=== PATIENT | male | born 1955 | race Caucasian/White ===

== ENCOUNTER 2017-03-09 09:20 | Day surgery (SDC) | payer OTHER ==
--- NOTE | 2017-03-06 15:19 | HISTORY AND PHYSICAL E ---
History and Physical NAME: RADHA OLSON : 1955 AGE: 62Y ADMITTED: 03/09/2017 ROOM: CHIEF COMPLAINT: Patient for colonoscopy. REFERRING PHYSICIAN: MAX MCCLELLAND MD. HISTORY: The patient does have a history of adenoma polyp, right colon. On colonoscopy in 2005, the patient did have adenoma polyps, lipoma, and hemorrhoid. Colonoscopy in 2007. Colonoscopy in 2011 shows as follows: He did a small polyp, ascending colon, and these polyps were adenoma polyp, ascending and transverse colon. Another colonoscopy showing adenoma polyps, ascending and transverse colon. PAST SURGICAL HISTORY: 1. Appendectomy as a child. 2. Knee surgery. 3. Back surgery. MEDICATION: 1. Zocor. 2. Crestor. 3. Metoprolol. ALLERGIES: No known allergies. SOCIAL HISTORY: Does smoke cigars. The patient is . FAMILY HISTORY: Father had emphysema. Mom is alive. REVIEW OF SYSTEMS: CARDIAC: Negative. RESPIRATORY: Negative. NEUROLOGIC: Negative. GASTROINTESTINAL: History of colon polyps. PHYSICAL EXAMINATION: VITAL SIGNS: Blood pressure 120/80, pulse 80, respirations 20, temp is 98. HEAD, EYES, EARS, NOSE, THROAT: Normal. NECK: Supple. LUNGS: Clear. ABDOMEN: Soft. NEUROLOGIC: Exam negative. CONCLUSION: 1. History of polyps. 2. Colon screening. PLAN: Colon exam, scheduled for 03/09. DICTATING PHYSICIAN: ANKUSH CAMARA M.D. [id number] PHY#: [id number] ID: [id number] JOB#: [id number] ACCT: [id number] cc:ANKUSH CAMARA M.D. >
[2017-03-09] MEDS ORDERED: GLYCOPYRROLATE INJ 0.4 MG/2 ML VIAL ONE (09:51)
[2017-03-09] MEDS ORDERED: NALOXONE HCL INJ/PF 0.4 MG/1 ML SDV ONE (09:51)
[2017-03-09] MEDS ORDERED: MIDAZOLAM 2 MG/2 ML INJ ONE (09:51)
[2017-03-09] MEDS ORDERED: ONDANSETRON HCL INJ/PF 4 MG/2 ML SDV ONE (09:51)
[2017-03-09] MEDS ORDERED: GLUCAGON,HUMAN RECOMB 1 MG INJ ONE (09:52)
[2017-03-09] MEDS ORDERED: EPINEPHRINE INJ 1 MG/10 ML DISP.SYRIN ONE (09:52)
[2017-03-09] MEDS ORDERED: FLUMAZENIL INJ 0.5 MG/5 ML VIAL ONE (09:52)
[2017-03-09] MEDS: MIDAZOLAM 2 MG/2 ML INJ ONE ×2 (10:11→10:15)
[2017-03-09] MEDS: FENTANYL CITRATE INJ/PF 100 MCG/2 ML AMPUL ONE ×2 (10:13→10:17)
[2017-03-09 11:22] VITALS: BP 104/70
[2017-03-09 11:25] LABS: ABSOLUTE EOSINOPHILS # (AUTO) 0.1 10^3/uL (0.0-0.6); ABSOLUTE LYMPHOCYTES (AUTO) 1.8 10^3/uL (0.5-4.7); ABSOLUTE MONOCYTES (AUTO) 0.3 10^3/uL (0.1-1.4); ABSOLUTE NEUT (AUTO) 4.3 10^3/uL (1.7-8.2); BASOPHILS % (AUTO) 0.4 % (0-2); EOSINOPHILS % (AUTO) 1.4 % (0-6); HEMATOCRIT 45.3 % (37.9-51.0); HGB HCT DIFFERENCE 2.7; MEAN CORPUSCULAR HGB CONC 35.3 g/dL (32.0-36.0); MEAN CORPUSCULAR VOLUME 91 fl (80-97); MONOCYTES % (AUTO) 4.6 % (3-13); RED BLOOD COUNT 5.01 10^6/uL (4.35-5.55); SEGMENTED NEUTROPHILS % (AUTO) 65.6 % (42-78); WHITE BLOOD COUNT 6.5 10^3/uL (4.0-10.5)
--- NOTE | 2017-03-09 11:52 | OPERATIVE REPORT E ---
Operative Report NAME: RADHA OLSON : 1955 AGE: 62Y DATE OF SURGERY: 03/09/2017 ROOM: PREOPERATIVE DIAGNOSIS: Rectal bleeding. POSTOPERATIVE DIAGNOSES: 1. External hemorrhoids, mild. 2. Diminutive rectal polyp. PROCEDURE: Colonoscopy. SURGEON: ANKUSH CAMARA M.D. TISSUE REMOVED OR ALTERED: None. ANESTHESIA: Versed 6, fentanyl 200. FINDINGS: Redundant colon. No evidence of malignancy. DESCRIPTION: Rectal exam shows external hemorrhoids. Rectum shows diminutive polyp small to biopsy 2 mm. Sigmoid descending colon normal. Transverse colon normal. Ascending colon normal. Cecum shows spasticity and contractility. I do see small lipoma in the ileocecal valve area, but there were no polyps, no bleeding. I was unable to intubate the cecum because of redundancy in the colon in spite of multiple tries. CONCLUSION: No polyps in the right colon. Unable to intubate the cecum thoroughly. Sigmoid normal. Rectal polyp. External hemorrhoids. PLAN: We will consider a CT scan to evaluate the cecum and the right colon. DICTATING PHYSICIAN: ANKUSH CAMARA M.D. [id number] PHY#: [id number] ID: [id number] JOB#: [id number] ACCT: [id number] cc:[facility] ANKUSH CAMARA M.D. >
--- NOTE | 2017-03-09 14:32 | DISCHARGE SUMMARY E ---
Discharge Summary NAME: RADHA OLSON : 1955 AGE: 62Y ADMITTED: 03/09/2017 DISCHARGED: 03/09/2017 HISTORY: Patient is 62 years old, has history of adenoma polyps, presents with rectal bleeding. Today's colonoscopy shows no bleeding, mild external hemorrhoids, redundant colon, partial evaluation of his cecum. Patient did have history of adenoma polyps. Today's colonoscopy shows no polyps, question lipoma in his cecum. PLAN: Consider CT or barium enema for further evaluation of his cecum, ascending colon. CONCLUSION: No bleeding, no malignancy. Colonoscopy to the cecum: Partial visualization of the cecum. Consider barium enema in a few months. Patient to undergo barium enema in a few months for further evaluation of his cecum. DISCHARGE PLAN: Full-liquid diet today; soft, low residue for 3 days. Baseline CBC and CEA. Followup visit in the next few days. DICTATING PHYSICIAN: ANKUSH CAMARA M.D. [id number] Y#: [id number] ID: [id number] JOB#: [id number] ACCT: [id number] cc:[facility] ANKUSH CAMARA M.D. >
== END 2017-03-09 11:30 | disposition home or self-care (01) ==
LOC: END 09:20
PROVIDERS: ATTEND Specialist
PROC: 0DJD8ZZ Inspection of Lower Intestinal Tract, Via Natural or Artificial Opening Endoscopic (ICD-10-PCS; principal; 2017-03-09 10:00)
DX: D12.8 Benign neoplasm of rectum (principal); D17.5 Benign lipomatous neoplasm of intra-abdominal organs; K62.5 Hemorrhage of anus and rectum; K64.4 Residual hemorrhoidal skin tags; Z79.899 Other long term (current) drug therapy
CPT/HCPCS: 45378; 36415; 82378; 85025; J2250; J3010; J1610; J2405; J0171; J2310; J3490

== ENCOUNTER 2017-03-29 13:02 | Inpatient (IN) | payer OTHER ==
[~2017-03-29 13:02] MED LIST: DEXAMETHASONE SOD PHOSPHATE INJ 4 MG/1 ML VIAL ONE; METOCLOPRAMIDE HCL INJ/PF 10 MG/2 ML SDV ONE; ONDANSETRON HCL INJ/PF 4 MG/2 ML SDV ONE; SUCCINYLCHOLINE CHLORIDE INJ 200 MG/10 ML VIAL ONE
[2017-03-29] MEDS ORDERED: OXYCODONE-ACETAMINOPHEN 5-325 MG TABLET PO ONE (13:04)
[2017-03-29] MEDS ORDERED: HYDROMORPHONE HCL INJ/PF 2 MG/ML AMPULE IV ONE ×2 (13:09→14:09)
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
[2017-03-29] MEDS ORDERED: FENTANYL CITRATE INJ/PF 100 MCG/2 ML AMPUL ONE (14:24)
[2017-03-29] MEDS ORDERED: MIDAZOLAM 2 MG/2 ML INJ ONE (14:24)
[2017-03-29] MEDS ORDERED: PROPOFOL INJ 200 MG/20 ML VIAL IV ONE (14:25)
[2017-03-29] MEDS ORDERED: HYDROMORPHONE HCL INJ/PF 2 MG/ML AMPULE ONE (14:25)
--- NOTE | 2017-03-29 14:28 | RADIOLOGY REPORT (SQ) ---
EXAM DESCRIPTION: FOOT LEFT COMPLETE COMPLETED DATE/TIME: 03/29/2017 1:53 pm REASON FOR STUDY: pain COMPARISON: None. NUMBER OF VIEWS: Three views. TECHNIQUE: AP, lateral and oblique radiographic images acquired of the left foot. LIMITATIONS: None. FINDINGS: MINERALIZATION: Normal. BONES: There are fractures of the 2nd, 3rd, 4th, and 5th metatarsals. There is subluxation of the 1s t metatarsal medial to the 1st cuneiform. JOINTS: No effusions. SOFT TISSUES: No soft tissue swelling. No foreign body. OTHER: No other significant finding. IMPRESSION: Severe Lisfranc injury with fractures of the 2nd through 5th metatarsals. There is wide separation between 1st and 2nd metatarsal bases with complete dislocation of the joint between the 1 st cuneiform and the 1st metatarsal. TECHNICAL DOCUMENTATION: JOB ID: [id number] [employer]- All Rights Reserved
--- NOTE | 2017-03-29 14:29 | RADIOLOGY REPORT (SQ) ---
EXAM DESCRIPTION: ANKLE LEFT COMPLETE COMPLETED DATE/TIME: 03/29/2017 1:53 pm REASON FOR STUDY: crush COMPARISON: None. NUMBER OF VIEWS: Three views. TECHNIQUE: AP, lateral, and oblique radiographic images acquired of the left ankle. LIMITATIONS: None. FINDINGS: MINERALIZATION: Normal. BONES: On the lateral view a minor fracture of the dorsal aspect of the distal fibula cannot be exclu ded. Also metatarsal fractures described in detail on the foot radiographs are seen. JOINTS: No effusions. SOFT TISSUES: No soft tissue swelling. No foreign body. OTHER: No other significant finding. IMPRESSION: Metatarsal fractures. Cannot exclude minor fracture involving the dorsal aspect of the distal fibula. This is questionable. TECHNICAL DOCUMENTATION: JOB ID: [id number] [employer]- All Rights Reserved
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
[2017-03-29] MEDS ORDERED: CEFAZOLIN INJ 1 GM VIAL ONE (14:48)
[2017-03-29 15:03] LABS: ABSOLUTE BASOPHILS # (AUTO) 0.1 10^3/uL (0.0-0.2); ABSOLUTE EOSINOPHILS # (AUTO) 0.3 10^3/uL (0.0-0.6); ABSOLUTE MONOCYTES (AUTO) 0.6 10^3/uL (0.1-1.4); ABSOLUTE NEUT (AUTO) 10.6 10^3/uL (1.7-8.2); BASOPHILS % (AUTO) 0.4 % (0-2); EOSINOPHILS % (AUTO) 1.9 % (0-6); HEMATOCRIT 44.7 % (37.9-51.0); HGB HCT DIFFERENCE 3.3; MEAN CORPUSCULAR HEMOGLOBIN 31.8 pg (27.0-33.4); MEAN CORPUSCULAR HGB CONC 35.8 g/dL (32.0-36.0); MEAN CORPUSCULAR VOLUME 89 fl (80-97); MONOCYTES % (AUTO) 4.6 % (3-13); RED BLOOD COUNT 5.03 10^6/uL (4.35-5.55); RED CELL DISTRIBUTION WIDTH 13.2 % (11.5-14.0); SEGMENTED NEUTROPHILS % (AUTO) 78.1 % (42-78); WHITE BLOOD COUNT 13.6 10^3/uL (4.0-10.5)
--- NOTE | 2017-03-29 15:17 | Operative Report ---
Operative Report DATE OF SURGERY: 03/29/17 PREOPERATIVE DIAGNOSIS: Left Lisfranc's fracture dislocation, compartment syndrome OPERATION: Fasciotomy left foot. Open reduction and percutaneous fixation of first tarsometatarsal dislocation SURGEON: NICHOLAS MAGAÑA ANESTHESIA: GA ESTIMATED BLOOD LOSS: 75 PROCEDURE: The patient supine on the operating table the left lower extremities prepped and draped in sterile fashion. Limb was elevated for exsanguination tourniquet inflated 280 torr. Longitudinal incisions were made over the second and fourth metatarsals to affect a 9 compartment fasciotomy to the foot. Once this is accomplished the first tarsometatarsal dislocation is reduced under fluoroscopic guidance of 0.062 K wires placed from medial distal to proximal lateral across the tarsal metatarsal joint with an anatomic reduction. The tourniquet is deflated. The wound is irrigated. The fasciotomy incisions are reapproximated using interrupted nylon. Sterile compressive dressing and posterior plaster splint were applied and the patient's return to the PACU in satisfactory condition.
[2017-03-29 15:20] LABS: ANION GAP 12 (5-19); BLOOD UREA NITROGEN 16 mg/dL (7-20); CALCIUM 9.5 mg/dL (8.4-10.2); CARBON DIOXIDE 25 mmol/L (22-30); CHLORIDE 105 mmol/L (98-107); CREATINE KINASE 181 U/L (55-170); CREATININE RESULT 0.73 mg/dL (0.52-1.25); GLUCOSE 88 mg/dL (75-110); POTASSIUM 4.1 mmol/L (3.6-5.0); SODIUM 142.1 mmol/L (137-145)
[2017-03-29] MEDS ORDERED: DIPHENHYDRAMINE HCL 50 MG/ML VIAL IV PRN (15:23)
[2017-03-29] MEDS ORDERED: PROMETHAZINE HCL INJ 25 MG/1 ML VIAL IV PRN ×2 (15:23)
[2017-03-29] MEDS ORDERED: MORPHINE SULFATE 10 MG/ML INJ IV PRN (15:23)
[2017-03-29] MEDS ORDERED: OXYCODONE-ACETAMINOPHEN 5-325 MG TABLET PO PRN ×2 (15:23)
[2017-03-29] MEDS ORDERED: MEPERIDINE HCL/PF INJ 25 MG/1 ML DISP.SYRIN IV PRN (15:23)
[2017-03-29] MEDS ORDERED: FENTANYL CITRATE INJ/PF 100 MCG/2 ML AMPUL IV PRN ×3 (15:23)
--- NOTE | 2017-03-29 15:44 | RADIOLOGY REPORT (SQ) ---
EXAM DESCRIPTION: NO CHG FLUORO; FOOT LEFT 2 VIEWS COMPLETED DATE/TIME: 03/29/2017 3:26 pm REASON FOR STUDY: LEFT FOOT PINNING ASSISTED WITH FLUORO IN OR COMPARISON: 03/29/2017. FLUOROSCOPY TIME: 0.1 minute. 2 images saved to PACS. TECHNIQUE: Intra-operative images acquired during surgical procedure to evaluate progress. NUMBER OF IMAGES: 2 images. LIMITATIONS: None. FINDINGS: Reduction of the dislocation of the 1st tarsal metatarsal joint with placement of hardware . IMPRESSION: IMAGE(S) OBTAINED DURING PROCEDURE. COMMENT: Quality ID [id number]: Final reports for procedures using fluoroscopy that document radiation exp osure indices, or exposure time and number of fluorographic images (if radiation exposure indices are not available) Please consult full operative report of the attending physician for description of the procedure. TECHNICAL DOCUMENTATION: JOB ID: [id number] [employer]- All Rights Reserved
[2017-03-29] MEDS: MEPERIDINE HCL/PF INJ 25 MG/1 ML DISP.SYRIN ONE ×2 (16:02→16:07)
[2017-03-29] MEDS: FENTANYL CITRATE INJ/PF 100 MCG/2 ML AMPUL ONE ×2 (16:15→16:20)
[2017-03-29] MEDS: MORPHINE SULFATE 10 MG/ML INJ ONE ×2 (16:30→16:40)
[2017-03-29] MEDS ORDERED: KETOROLAC TROMETHAMINE INJ/PF 30 MG/1 ML SDV ONE (16:37)
[2017-03-29] MEDS ORDERED: ACETAMINOPHEN 100 ML IV ONE (16:37)
[2017-03-29] MEDS ORDERED: RINGERS SOLUTION,LACTATED 1,000 ML IV PRN (18:26)
[2017-03-29] MEDS ORDERED: OXYCODONE HCL IR 5 MG TABLET PO PRN ×3 (18:27→21:00)
[2017-03-29] MEDS ORDERED: ONDANSETRON 4 MG TAB.RAPDIS SL PRN (18:28)
[2017-03-29] MEDS ORDERED: MORPHINE SULFATE 10 MG/ML INJ ONE (18:45)
[2017-03-29] MEDS ORDERED: TAMSULOSIN HCL 0.4 MG CAP.SR.24H PO ONE (19:30)
[2017-03-29] MEDS: ATORVASTATIN CALCIUM 80 MG TABLET PO SCH (21:31)
[2017-03-29] MEDS: MORPHINE SULFATE 10 MG/ML INJ IV PRN (21:31)
[2017-03-29] MEDS: CYCLOBENZAPRINE HCL 10 MG TABLET PO SCH (21:31)
[2017-03-29] MEDS: CEFAZOLIN 2 GM/D5W RTU 2 GM/50 ML RTUPB IV SCH (21:32)
[2017-03-29] MEDS ORDERED: (PENDING PHARMACY ID) (Gabapentin Enacarbil [Horizant] 600 MG) PO SCH (22:00)
[2017-03-29] MEDS ORDERED: (PENDING PHARMACY ID) (Rosuvastatin Calcium [Crestor] 40 MG) PO SCH (22:00)
[2017-03-29] MEDS ORDERED: OXYCODONE HCL SR 10 MG TABLET PO SCH (22:00)
[2017-03-30] MEDS: CEFAZOLIN 2 GM/D5W RTU 2 GM/50 ML RTUPB IV SCH (05:37)
[2017-03-30] MEDS: CYCLOBENZAPRINE HCL 10 MG TABLET PO SCH ×3 (05:37→21:38)
[2017-03-30] MEDS: MORPHINE SULFATE 10 MG/ML INJ IV PRN ×3 (05:44→18:10)
--- NOTE | 2017-03-30 07:50 | PDOC PROGRESS REPORT ---
Subjective Progress Note for:: 03/30/17 Subjective:: Patient complains of unrelenting pain Reason For Visit: DISLOCATION OF TARSOMETATARSAL JOINT COM Physical Exam Vital Signs: Temp Pulse Resp BP Pulse Ox 36.7 C 73 16 110/53 L 96 03/29/17 23:30 03/29/17 23:30 03/29/17 23:30 03/29/17 23:30 03/29/17 23:30 Intake & Output 03/29/17 03/30/17 03/31/17 06:59 06:59 06:59 Intake Total 2900 Output Total 2005 Balance 895 Weight 105.1 kg General appearance: PRESENT: mild distress Head exam: PRESENT: normocephalic Respiratory exam: PRESENT: unlabored Cardiovascular exam: PRESENT: RRR Vascular exam: PRESENT: normal capillary refill GI/Abdominal exam: PRESENT: soft Rectal exam: PRESENT: deferred Extremities exam: PRESENT: other - Left lower extremity dressing is intact. It has been reinforced due to bleedthrough. Swelling in the toe seems to be decreased. There is brisk capillary refill in each of the digits. Sensory examination is intact to light touch. Motor function of the toes is intact although painful. Neurological exam: PRESENT: alert, awake, oriented to person, oriented to place , oriented to time, oriented to situation. ABSENT: motor sensory deficit Psychiatric exam: PRESENT: anxious, appropriate affect, normal mood. ABSENT: homicidal ideation, suicidal ideation Skin exam: PRESENT: dry, intact, warm. ABSENT: cyanosis, rash Results Impressions: Fluoroscopy 03/29/17 00:00 IMPRESSION: IMAGE(S) OBTAINED DURING PROCEDURE. Foot X-Ray 03/29/17 13:04 IMPRESSION: Severe Lisfranc injury with fractures of the 2nd through 5th metatarsals. There is wide separation between 1st and 2nd metatarsal bases with complete dislocation of the joint between the 1st cuneiform and the 1st metatarsal. Ankle X-Ray 03/29/17 13:09 IMPRESSION: Metatarsal fractures. Cannot exclude minor fracture involving the dorsal aspect of the distal fibula. This is questionable. Status: Imported from PACS Assessment & Plan - Diagnosis (1) Compartment syndrome of left foot Is this a current diagnosis for this admission?: Yes Plan: 62-year-old white male status post crush injury to left foot yesterday with fasciotomy, closed reduction percutaneous fixation. The patient and his are somewhat anxious for a plan. I have explained to them that at this point we need to wait and watch and determine what the level of soft tissue injury is before we proceed with any type of internal fixation. In the meantime we will increase his analgesics, continue with foot elevation, and inspect the wound tomorrow. (2) Lisfranc dislocation Qualifiers: Encounter type: initial encounter Laterality: left Qualified Code(s): S93.325A - Dislocation of tarsometatarsal joint of left foot, initial encounter Is this a current diagnosis for this admission?: Yes - Time Time Spent with patient: 15-24 minutes Anticipated discharge: Home with Homehealth Within: Other
[2017-03-30] MEDS ORDERED: OXYCODONE HCL SR 10 MG TABLET PO SCH ×2 (10:00→22:00)
[2017-03-30] MEDS ORDERED: OXYCODONE HCL SR 40 MG TABLET PO SCH (10:00)
[2017-03-30] MEDS: ASPIRIN 81 MG TABLET, CHEWABLE PO SCH (10:35)
[2017-03-30] MEDS: METOPROLOL SUCCINATE 50 MG TAB.SR.24H PO SCH (10:36)
[2017-03-30] MEDS: OXYCODONE HCL IR 5 MG TABLET PO PRN (10:38)
[2017-03-30] MEDS ORDERED: OXYCODONE HCL SR 10 MG TABLET PO ONE (14:00)
[2017-03-30] MEDS ORDERED: TAMSULOSIN HCL 0.4 MG CAP.SR.24H PO SCH (18:00)
[2017-03-30] MEDS: OXYCODONE HCL SR 40 MG TABLET PO SCH (21:37)
[2017-03-30] MEDS: ATORVASTATIN CALCIUM 80 MG TABLET PO SCH (21:37)
[2017-03-31] MEDS: MORPHINE SULFATE 10 MG/ML INJ IV PRN ×2 (04:02→10:35)
[2017-03-31] MEDS: CYCLOBENZAPRINE HCL 10 MG TABLET PO SCH (05:02)
[2017-03-31] MEDS: OXYCODONE HCL IR 5 MG TABLET PO PRN (07:34)
[2017-03-31 08:24] VITALS: BP 135/84
[2017-03-31] MEDS ORDERED: OXYCODONE HCL IR 5 MG TABLET PO SCH (10:00)
[2017-03-31] MEDS: METOPROLOL SUCCINATE 50 MG TAB.SR.24H PO SCH (10:09)
[2017-03-31] MEDS: ASPIRIN 81 MG TABLET, CHEWABLE PO SCH (10:09)
[2017-03-31] MEDS: OXYCODONE HCL SR 40 MG TABLET PO SCH (10:09)
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
== END 2017-03-31 11:20 | disposition home or self-care (01) | DRG 501 ==
LOC: OROUT 13:02 → EH 14:46 → 4S 18:19
PROVIDERS: ADMIT Orthopaedic Surgery; ATTEND Orthopaedic Surgery
PROC: 0KNW0ZZ Release Left Foot Muscle, Open Approach (ICD-10-PCS; 2017-03-29)
PROC: 0SS Lower Joints, Reposition (ICD-10-PCS; principal; 2017-03-29 15:00)
DX: S93.325A Dislocation of tarsometatarsal joint of left foot, initial encounter (principal); T79.A22A Traumatic compartment syndrome of left lower extremity, initial encounter; V69.88XA Occupant (driver) (passenger) of heavy transport vehicle injured in other specified transport accidents, initial encounter; I25.10 Atherosclerotic heart disease of native coronary artery without angina pectoris; M46.92 Unspecified inflammatory spondylopathy, cervical region; Z79.899 Other long term (current) drug therapy; Z95.1 Presence of aortocoronary bypass graft; I25.2 Old myocardial infarction; F17.200 Nicotine dependence, unspecified, uncomplicated
CPT/HCPCS: 01480; 36415; 80048; 82550; 85025; 96374; 96376; 99291; J0131; J0330; J0690; J1100; J1170; J1885; J2175; J2250; J2270; J2405; J2704; J2765; J3010; J7120

== ENCOUNTER 2019-06-02 08:05 | Day surgery (SDC) | payer OTHER ==
[~2019-06-02 08:05] MED LIST changes: -DEXAMETHASONE SOD PHOSPHATE INJ 4 MG/1 ML VIAL ONE; -METOCLOPRAMIDE HCL INJ/PF 10 MG/2 ML SDV ONE; -ONDANSETRON HCL INJ/PF 4 MG/2 ML SDV ONE; +PROPOFOL INJ 200 MG/20 ML VIAL IV ONE; -SUCCINYLCHOLINE CHLORIDE INJ 200 MG/10 ML VIAL ONE
[2019-06-02 10:29] VITALS: BP 133/87
--- NOTE | 2019-06-02 12:53 | Operative Report ---
Operative Report DATE OF SURGERY: 06/02/19 Operative Report: The risk, benefits and alternatives of the procedure including the risk of bleeding, perforation requiring surgery have been explained to the patient in detail and informed consent has been obtained. The patient is placed in a left, lateral decubital position. Timeout was called. Propofol medication is administered. Rectal examination is done which did not reveal any masses, tears or fissures. Colonoscopy was performed to the cecum with all of the segments visualized. No post procedure complications are noted. Retroflexion maneuvers performed. PREOPERATIVE DIAGNOSIS: Colorectal cancer screening POSTOPERATIVE DIAGNOSIS: Rectosigmoid polyp status post biopsy. 2 transverse colon sessile polyps removed via snare polypectomy and retrieved. Internal hemorrhoids OPERATION: Colonoscopy with snare polypectomy. Colonoscopy with biopsy SURGEON: LAURA MAURICE ANESTHESIA: LMAC TISSUE REMOVED OR ALTERED: As noted above. COMPLICATIONS: None. ESTIMATED BLOOD LOSS: None. INTRAOPERATIVE FINDINGS: As noted above. PROCEDURE: Patient tolerated the procedure well. No immediate postprocedure complications are noted. Patient is discharged in good condition. Discharge date 06/02/2019. Discharge diet: Regular. Discharge activity: Regular. 2 to 3-week follow-up to discuss findings. Patient is instructed to call the office or proceed to the emergency room should there be any further problems or questions. 3 to 5-year surveillance colonoscopy.
--- NOTE | 2019-06-02 13:24 | EKG REPORT ---
SEVERITY:- ABNORMAL ECG - SINUS RHYTHM RIGHT BUNDLE BRANCH BLOCK ANTEROSEPTAL INFARCT, OLD, SINCE 2013. : Confirmed by: Alberto Galeano MD 02-Jun-2019 13:23:41
== END 2019-06-02 10:31 | disposition home or self-care (01) ==
LOC: END 08:05
PROVIDERS: ATTEND Internal Medicine Gastroenterology
DX: Z86.010 Personal history of colon polyps (principal); Z12.11 Encounter for screening for malignant neoplasm of colon; K64.8 Other hemorrhoids; D12.3 Benign neoplasm of transverse colon
CPT/HCPCS: 45380; 45385; 88305 ×2; 93005; 93010; 00812; J2704; 812

== ENCOUNTER → 2020-03-10 | Outpatient (CLI) | payer MEDICARE, OTHER ==
[2020-03-10 09:43] LABS: APPEARANCE,URINE CLEAR; BILIRUBIN,URINE NEGATIVE (NEGATIVE); COLOR,URINE YELLOW; GLUCOSE, URINE NEGATIVE (NEGATIVE); KETONES,URINE NEGATIVE (NEGATIVE); LEUKOCYTE ESTERASE,URINE NEGATIVE (NEGATIVE); NITRITE,URINE NEGATIVE (NEGATIVE); PROTEIN,URINE NEGATIVE (NEGATIVE); URINE SPECIFIC GRAVITY 1.018; UROBILINOGEN,URINE NEGATIVE mg/dL (<2.0)
== END ==
LOC: OD 08:32
PROVIDERS: ATTEND Pain Medicine Interventional Pain Medicine
DX: M54.5 Low back pain (principal)
CPT/HCPCS: 81001